=== PATIENT | female | born 1945 | race Caucasian/White ===

== ENCOUNTER → 2023-07-26 07:52 | Outpatient (REF) | payer MEDICARE, SELFPAY ==
[2023-07-26 09:01] LABS: Urine Albumin 1+ (Neg - Trace); Urine Bilirubin Negative (Negative); Urine Character Very Cloudy (Clear); Urine Color Yellow; Urine Glucose Negative (Negative); Urine Ketone Negative (Negative); Urine Leukocyte 2+ (Negative); Urine Nitrite Negative (Negative); Urine Occult Blood 1+ (Negative); Urine Urobilinogen Negative (Neg - 1+)
[2023-07-26 09:06] LABS: % Basophils 0.7 % (0-2); % Eosinophils 6.1 % (0-6); % Immature Granulocytes 0.6 % (0-0.5); % Lymphocytes 23.2 % (20.5-51.1); % Monocytes 9.2 % (1.7-9.3); % Neutrophils 60.2 % (42.2-75.2); Absolute Basophils 0.1 10^3/uL (0-0.2); Absolute Eosinophils 0.6 10^3/uL (0-0.7); Absolute Immature Granulocytes 0.1 10^3/uL (0-0.05); Absolute Lymphocytes 2.4 10^3/uL (1.2-3.4); Absolute Monocytes 0.9 10^3/uL (0.1-0.6); Absolute Neutrophils 6.1 10^3/uL (1.4-6.5); Hematocrit 41.1 % (37.0-47.0); Hemoglobin 13.4 g/dL (12.0-16.0); Mean Corp Hgb Conc. 32.6 g/dL (33.0-37.0); Mean Corpuscular Hgb 27.9 pg (27.0-31.0); Mean Corpuscular Volume 85.6 fL (81.0-99.0); Mean Platelet Volume 8.7 fL (7.4-10.4); Nucleated Red Blood Cells % 0 %; Platelet Count 367 10^3/uL (130-400); Red Cell Dist. Width 13.3 % (11.5-14.5); White Blood Cell Count 10.2 10^3/uL (4.8-10.8)
[2023-07-26 09:21] LABS: Urine Red Blood Cell 0-2 /HPF (0-2); Urine Squamous Cell 0-2 /LPF (Few); Urine White Cell 70-80 /HPF (0-5)
[2023-07-26 09:22] LABS: Urine Bacteria Few (Negative)
[2023-07-26 09:35] LABS: ALT (SGPT) 12 U/L (0-35); AST (SGOT) 25 U/L (14-36); Albumin 3.8 g/dl (3.5-5.0); Alkaline Phosphatase 102 U/L (38-126); Blood Urea Nitrogen 14 mg/dl (7-17); Calcium 9.3 mg/dl (8.4-10.2); Carbon Dioxide 26 mmol/L (22-30); Chloride 103 mmol/L (98-107); Glucose 102 mg/dl (70-99); HDL Cholesterol 61 mg/dl; LDL Cholesterol, Calculated 118 mg/dl; Sodium 138 mmol/L (135-145); Total Bilirubin 0.3 mg/dl (0.2-1.3); Total Cholesterol 195 mg/dl (50-199); Triglyceride 84 mg/dl (10-149); Very Low Density Lipoprotein 16 mg/dl (0-30); eGFR > 60.00
[2023-07-26 09:48] LABS: Free T4 1.05 ng/dl (0.78-2.19); Vitamin D, 25-OH*** 21.8 ng/mL (30-80)
[2023-07-26 10:02] LABS: TSH 3.38 uIU/ml (0.47-4.68)
== END ==
LOC: HWLAB 07:52
PROVIDERS: ATTENDING PHYSICIAN Internal Medicine Geriatric Medicine
DX: N81.3 Complete uterovaginal prolapse (principal); I10 Essential (primary) hypertension; E78.2 Mixed hyperlipidemia; E03.8 Other specified hypothyroidism; F51.01 Primary insomnia; M81.0 Age-related osteoporosis without current pathological fracture; E04.1 Nontoxic single thyroid nodule; E55.9 Vitamin D deficiency, unspecified; J22 Unspecified acute lower respiratory infection; K82.4 Cholesterolosis of gallbladder; Z13.89 Encounter for screening for other disorder; Z12.39 Encounter for other screening for malignant neoplasm of breast
CPT/HCPCS: 36415; 80053; 80061; 81003; 81015; 82306; 84439; 84443; 85025

== ENCOUNTER 2023-08-06 22:42 | Emergency (ER) | payer MEDICARE, SELFPAY ==
[2023-08-06 22:54] VITALS: BP 180/104
[2023-08-06 23:50] VITALS: BP 152/86
[2023-08-07] VITALS: BP 156/88
[2023-08-07 01:00] VITALS: BP 152/80
--- NOTE | 2023-08-07 02:11 | ED.SKININJ ---
HPI-Injury
General
Chief Complaint: Skin Problem
Source: patient
Exam Limitations: none
Time Seen by Provider: 08/07/23 01:55
Nursing documentation reviewed up to this point in time: agreed with
Travel History
Have you had any contact with someone who has COVID-19?: No
Do you have any symptoms of coronavirus? Fever > 100 degrees, chills, cough, shortness of breath, sore throat, loss of taste or smell, muscle aches, or headache?: No
History of Present Illness-Injury
Is this injury a work related problem?: No
Is pt an associate of [facility]?: No
Initial Injury comments:
78-year-old female scraped her left hand few hours ago, did not fall directly on it, mild pain has full range of motion has a 3 to 4 cm skin tear which has been cleaned and dressed by nursing she is unsure of her last tetanus
Past History
Past History
ED Past Medical History: None
Social History
Tobacco: Non-smoker
Alcohol: None
Drug: None
Personal:
Living: with family
Employment: Retired
Review of Systems
Review of Systems
All Other Systems: Not applicable
Respiratory: Reports no symptoms
Cardiac: Reports no symptoms
ABD/GI: Reports no symptoms
Musculoskeletal: Denies joint pain
Skin: Reports other (Skin tear)
Phy Exam
Physical Exam
Physical Exam:
Physical Exam
General: no apparent distress, not acutely ill
Neck: No tongue bite
Lungs: no acute respiratory distress.
Neuro: alert and oriented. no focal neurological deficits
Skin: no rash
Psychiatric: well kept. interactive and cooperative
Extremities: Left hand on the extensor surface superficial skin tear 3 to 4 cm full range of motion strong radial pulse
Course
Orders/Labs/Results
Orders:
Orders
08/07/23 02:10
Tetanus/Diphth/Acelpertussis [Adacel] 0.5 ml IM .ONCE ONE
Vital Signs
Initial and Last Documented VS:
Initial Vital Signs
Temp Pulse Resp BP Pulse Ox
98.4 F 108 22 180/104 97
08/06/23 22:54 08/06/23 22:54 08/06/23 22:54 08/06/23 22:54 08/06/23 22:54
Last Documented Vital Signs
Temp Pulse Resp BP Pulse Ox
98.4 F 108 22 156/88 98
08/06/23 22:54 08/06/23 22:54 08/06/23 22:54 08/07/23 00:00 08/07/23 00:15
MDM/Problems Addressed
Differential Diagnosis Includes:
Abrasion skin tear doubt fracture by history and physical
MDM/Problems Addressed:
Skin tear to the left hand
*Critical Care Note
Total Time (30-74mins, 75-104mins- exclusive of procedures): Not Applicable
Update Note
Update Note:
Dressing taken down wound is clean dry and intact
ED Attending Note
-
Portions of this chart may have been created with voice recognition software.� Occasional wrong word or��sound alike� substitutions may have occurred due to the inherent limitations of voice recognition software.
Discharge Plan
Departure
Patient Disposition: Home (Routine Discharge)
Date of Disposition: 08/07/23
Time of Disposition: 02:09
Patient with high blood pressure during this ER visit?: No
Condition: Good
Discharge Problem:
Skin tear
Instructions: Wound Care (DC), Skin Abrasions (DC), [facility]
Prescriptions:
No Action
Ambien
HS
oxycodone-acetaminophen 5 MG/325 MG tablet
1 tab PO Q4HPRN PRN (Reason: pain) Qty: 25 0RF
ondansetron 4 MG tablet,disintegrating
4 mg PO TIDPRN PRN (Reason: nausea) Qty: 20 0RF
Referrals:
Charles Huitron MD [Family Provider] - Follow up in 1 week
Interventions
Interventions:
*Risk Screen - Suicide Last Done: 08/06/23 22:54
*General Assessment Last Done: 08/06/23 23:51
*Neglect/Abuse Screening Last Done: 08/06/23 22:54
ED- Fall Risk Assessment Last Done: 08/06/23 23:54
*ED COVID-19 Vaccine History Last Done: 08/06/23 23:51
ED-Musculoskeletal Assessment Last Done: 08/06/23 23:51
ED- Neurological Assessment Last Done: 08/06/23 23:51
ED-Skin Assessment Last Done: 08/06/23 23:51
Discharge Date and Time
Print Language: [id number]
[2023-08-07] MEDS: ADACEL 0.5 ML IM (02:19)
[2023-08-07 02:27] VITALS: BP 134/89
== END 2023-08-07 02:28 | disposition home or self-care (01) ==
LOC: EMR 22:42
PROVIDERS: EMERGENCY PHYSICIAN Emergency Medicine; FAMILY PHYSICIAN Internal Medicine Geriatric Medicine
DX: S61.412A Laceration without foreign body of left hand, initial encounter (principal); W01.0XXA Fall on same level from slipping, tripping and stumbling without subsequent striking against object, initial encounter
CPT/HCPCS: 99282; 90471; 90715

== ENCOUNTER → 2023-09-16 09:38 | Outpatient (REF) | payer MEDICARE, SELFPAY | LOC: HWWDC 09:38 | PROVIDERS: ATTENDING PHYSICIAN Internal Medicine Geriatric Medicine | DX: Z12.31 Encounter for screening mammogram for malignant neoplasm of breast (principal) | CPT/HCPCS: 77063; 77067 ==

== ENCOUNTER → 2024-07-27 09:16 | Outpatient (REF) | payer MEDICARE, SELFPAY ==
[2024-07-27 12:02] LABS: % Basophils 0.7 % (0-2); % Eosinophils 3.8 % (0-6); % Immature Granulocytes 0.7 % (0-0.5); % Lymphocytes 15.6 % (20.5-51.1); % Monocytes 8.9 % (1.7-9.3); % Neutrophils 70.3 % (42.2-75.2); Absolute Basophils 0.1 10^3/uL (0-0.2); Absolute Eosinophils 0.4 10^3/uL (0-0.7); Absolute Immature Granulocytes 0.1 10^3/uL (0-0.05); Absolute Lymphocytes 1.7 10^3/uL (1.2-3.4); Absolute Neutrophils 7.5 10^3/uL (1.4-6.5); Hematocrit 39.4 % (37.0-47.0); Hemoglobin 12.8 g/dL (12.0-16.0); Mean Corp Hgb Conc. 32.5 g/dL (33.0-37.0); Mean Corpuscular Hgb 27.1 pg (27.0-31.0); Mean Corpuscular Volume 83.5 fL (81.0-99.0); Nucleated Red Blood Cells % 0 %; Platelet Count 415 10^3/uL (130-400); Red Blood Cell Count 4.72 10^6/uL (4.20-5.40); White Blood Cell Count 10.7 10^3/uL (4.8-10.8)
[2024-07-27 12:17] LABS: Urine Albumin 3+ (Neg - Trace); Urine Bilirubin Negative (Negative); Urine Character Cloudy (Clear); Urine Color Yellow; Urine Glucose Negative (Negative); Urine Ketone Negative (Negative); Urine Leukocyte 3+ (Negative); Urine Nitrite Negative (Negative); Urine Occult Blood 3+ (Negative); Urine Specific Gravity 1.015 (<1.030); Urine Urobilinogen Negative (Neg - 1+)
[2024-07-27 12:37] LABS: Urine Bacteria Few (Negative); Urine White Cell 80-90 /HPF (0-5)
[2024-07-27 12:47] LABS: ALT (SGPT) < 10 U/L (0-35); AST (SGOT) 18 U/L (14-36); Albumin 3.8 g/dl (3.5-5.0); Alkaline Phosphatase 114 U/L (38-126); Blood Urea Nitrogen 13 mg/dl (7-17); Calcium 9.1 mg/dl (8.4-10.2); Carbon Dioxide 26 mmol/L (22-30); Chloride 105 mmol/L (98-107); Free T4 1.07 ng/dl (0.78-2.19); Glucose 109 mg/dl (70-99); HDL Cholesterol 51 mg/dl; LDL Cholesterol, Calculated 113 mg/dl; Potassium 4.1 mmol/L (3.5-5.1); Sodium 139 mmol/L (135-145); Total Bilirubin 0.4 mg/dl (0.2-1.3); Total Cholesterol 179 mg/dl (50-199); Total Protein 7.3 g/dl (6.3-8.2); Triglyceride 77 mg/dl (10-149); Very Low Density Lipoprotein 15 mg/dl (0-30); Vitamin D, 25-OH*** 21.2 ng/mL (30-80); eGFR > 60.00
[2024-07-27 12:54] LABS: TSH 3.33 uIU/ml (0.47-4.68)
== END ==
LOC: HWLAB 09:16
PROVIDERS: ATTENDING PHYSICIAN Internal Medicine Geriatric Medicine
DX: Z00.00 Encounter for general adult medical examination without abnormal findings (principal); E78.2 Mixed hyperlipidemia; E03.8 Other specified hypothyroidism; F51.01 Primary insomnia; M81.0 Age-related osteoporosis without current pathological fracture; E04.1 Nontoxic single thyroid nodule; E55.9 Vitamin D deficiency, unspecified; J22 Unspecified acute lower respiratory infection; Z13.89 Encounter for screening for other disorder; N39.41 Urge incontinence; Z12.31 Encounter for screening mammogram for malignant neoplasm of breast
CPT/HCPCS: 36415; 80053; 80061; 81003; 81015; 82306; 84439; 84443; 85025

== ENCOUNTER → 2024-09-21 08:43 | Outpatient (REF) | payer MEDICARE, SELFPAY | LOC: HWWDC 08:43 | PROVIDERS: ATTENDING PHYSICIAN Internal Medicine Geriatric Medicine | DX: Z12.31 Encounter for screening mammogram for malignant neoplasm of breast (principal) | CPT/HCPCS: 77063; 77067 ==

== ENCOUNTER → 2024-11-11 09:45 | Outpatient (REF) | payer MEDICARE, SELFPAY | LOC: HWRAD 09:45 | PROVIDERS: ATTENDING PHYSICIAN Internal Medicine Geriatric Medicine | DX: M81.0 Age-related osteoporosis without current pathological fracture (principal) | CPT/HCPCS: 77080 ==